=== PATIENT | female | born 1965 | race Caucasian/White ===

== ENCOUNTER 2017-06-04 13:38 | Observation (INO) ==
--- NOTE | 2017-06-04 16:02 | Emergency Department Note ---
Disposition Clinical Impression: Chest pain Qualifiers: Chest pain type: unspecified Qualified Code(s): R07.9 - Chest pain, unspecified Disposition: Admitted As Inpatient Condition: Good Time of Disposition: 18:49 Chest Pain HPI - General Chief Complaint: ED Chest Pain Stated Complaint: chest pressure x2 days Time Seen by Provider: 06/04/17 15:52 Source: patient, family Mode of arrival: ambulatory Limitations: no limitations Vital Signs Reviewed: Yes Nursing Notes Reviewed: Yes - History of Present Illness HPI Narrative: 52-year-old who comes in complaining of pressure in her chest. This is been gone for 2 days. Says that she has some difficulty with swallowing and feels like something stuck. States she ate some [place] 2 days ago but may be related to that. Pt complaint: chest pain Onset (ago): day(s) Duration: constant Pain Location: substernal Severity scale (1-10): 3 Quality: tightness, aching Pain Radiation: none Improves with: nothing Worsens with: eating Treatments prior to arrival chest pain: none - Related Data Home Medications Medication Instructions Recorded Confirmed No Known Home Drugs 06/04/17 06/04/17 Allergies Allergy/AdvReac Type Severity Reaction Status Date / Time No Known Allergies Allergy Verified 06/04/17 14:13 All systems ED: reviewed and negative except as stated. Constitutional: Denies: fever, chills, weakness, weight change Eyes: Denies: eye pain, eye discharge, vision change ENT ED: Denies: ear pain, throat pain, dental pain, hearing loss, epistaxis, congestion, dysphagia Cardiovascular: Reports: chest pain. Denies: palpitations, dyspnea on exertion , edema, syncope Respiratory: Denies: cough, dyspnea, wheezes, hemoptysis, stridor Gastrointestinal: Denies: abdominal pain, nausea, vomiting, diarrhea, constipation, hematemesis, melena, hematochezia Genitourinary: Denies: dysuria, frequency, hematuria, discharge Musculoskeletal: Denies: back pain, neck pain, arthralgia, myalgia Integumentary: Denies: rash, abrasion, lesions Neurological: Denies: headache, weakness, numbness, paresthesias, confusion, abnormal gait, vertigo Psychiatric: Denies: anxiety, depression, suicidal thoughts, homicidal thoughts , auditory hallucinations, visual hallucinations Endocrine: Denies: fatigue Hematological/Lymphatic: Denies: easy bleeding, easy bruising Allergic/Immunologic: Denies: facial swelling, urticaria Chest Pain PMH - Past Medical History Medical history: Reports: no medical history Psychiatric history: Reports: no psych history - Social History Smoking Status: Never smoker Alcohol use: Reports: none Drug use: Reports: none Physical Exam - General Limitations: no limitations General appearance: alert, in no apparent distress - Head Head exam: atraumatic, normocephalic, normal inspection - Eye Eye exam: Present: normal appearance, PERRL, EOMI - ENT ENT exam: normal exam, normal oropharynx, mucous membranes moist - Neck Neck exam: Present: normal inspection, full ROM, trachea midline - Chest Chest inspection: Present: normal inspection, symmetric chest wall rise - Respiratory Respiratory exam: Present: normal lung sounds bilaterally - Cardiovascular Cardiovascular exam: Present: regular rate, normal rhythm, normal heart sounds - Abdominal Exam Abdominal exam: Present: soft, Non-Tender. Absent: tenderness, distention, guarding, rebound, rigidity - Extremities Exam Extremities exam: Present: normal inspection - Expanded Lower Extremity Exam Neurovascular/Tendon exam: Absent: motor deficit, sensory deficit, tendon deficit - Back Exam Back exam: Present: normal inspection, full ROM. Absent: tenderness - Neurological Exam Neurological exam: Present: alert, oriented X3 - Psychiatric Psychiatric exam: Present: normal affect - Skin Skin exam: Present: warm, dry, intact, normal color Course - Reevaluation(s) Reevaluation #1: 52-year-old comes in complaining of some chest pressure states she did eat some [employer] and she thought maybe was contributing and may be stuck in her chest. I did discuss this with endoscopy who did not feel that she would require a scope at this point in time she also states that she has some radiation of the chest and her shoulders which does not go along with a feel foreign body. We'll admit her for rule out to make sure hearts okay. Time: 18:48 - Consultations Consultation #1: Discussed with Dr. Seals he recommends a soft diet and follow-up of systems symptoms worsen. He wanted me to give the patient his phone number to call him over the weekend if needed. Time: 16:02 Consultation #2: Discussed with Dr. Briggs, admit Time: 18:48 Vital Signs Temperature 98.1 F 06/04/17 14:13 Pulse Rate 50 06/04/17 14:13 Respiratory Rate 18 06/04/17 14:13 Blood Pressure 117/70 06/04/17 14:13 O2 Sat by Pulse Oximetry 100 06/04/17 14:13 Temperature 98.1 F 06/04/17 20:03 Pulse Rate 60 06/04/17 20:03 Respiratory Rate 14 06/04/17 20:03 Blood Pressure 112/72 06/04/17 20:03 O2 Sat by Pulse Oximetry 98 06/04/17 20:03 Oxygen Delivery Oxygen Delivery Room Air Chest Pain - Lab Data Lab results reviewed: Yes I reviewed the patient's lab results. Result diagrams: 06/04/17 16:01 06/04/17 16:01 Lab Results 06/04/17 06/04/17 06/04/17 Range/Units 16:01 16:01 16:01 WBC 6.2 (4.3-11.1) K/mcL RBC 4.61 (3.82-4.97) M/mcL Hgb 14.0 (11.5-15.4) g/dL Hct 41.6 (35.3-44.9) % MCV 90.2 (83.0-100.0) fL MCH 30.4 (28.0-33.3) pg MCHC 33.7 (31.6-35.5) g/dL RDW 11.5 (11.5-14.5) % Plt Count 279 (140-400) K/mcL MPV 11.3 (9.4-12.4) fL Immature Gran % 0.2 (0-4) % Seg Neutrophils % 44.8 % Lymphocytes % 42.4 % Monocytes % 7.9 % Eosinophils % 3.7 % Basophils % 1.0 % Neutrophils # 2.8 (1.6-8.9) K/mcL Lymphocytes # 2.6 (0.6-4.6) K/mcL Monocytes # 0.5 (0.0-1.3) K/mcL Eosinophils # 0.2 (0.0-0.6) K/mcL Basophils # 0.1 (0.0-0.2) K/mcL PT 11.6 (9.4-12.1) Seconds INR 1.1 Sodium 135 L (136-145) mEq/L Potassium 4.1 (3.5-5.1) mEq/L Chloride 102 (98-107) mEq/L Carbon Dioxide 27 (23-29) mEq/L BUN 17 (6-20) mg/dL Creatinine 0.75 (0.60-1.20) mg/dL Est GFR ( Amer) > 60 (> 60) Est GFR (Non-Af Amer) > 60 (> 60) BUN/Creatinine Ratio 23 (6-26) Glucose 97 (70-105) mg/dL Calculated Osmolality 281 (280-300) Calcium 9.6 (8.6-10.3) mg/dL Troponin I (< 0.04) ng/mL 06/04/17 Range/Units 16:01 WBC (4.3-11.1) K/mcL RBC (3.82-4.97) M/mcL Hgb (11.5-15.4) g/dL Hct (35.3-44.9) % MCV (83.0-100.0) fL MCH (28.0-33.3) pg MCHC (31.6-35.5) g/dL RDW (11.5-14.5) % Plt Count (140-400) K/mcL MPV (9.4-12.4) fL Immature Gran % (0-4) % Seg Neutrophils % % Lymphocytes % % Monocytes % % Eosinophils % % Basophils % % Neutrophils # (1.6-8.9) K/mcL Lymphocytes # (0.6-4.6) K/mcL Monocytes # (0.0-1.3) K/mcL Eosinophils # (0.0-0.6) K/mcL Basophils # (0.0-0.2) K/mcL PT (9.4-12.1) Seconds INR Sodium (136-145) mEq/L Potassium (3.5-5.1) mEq/L Chloride (98-107) mEq/L Carbon Dioxide (23-29) mEq/L BUN (6-20) mg/dL Creatinine (0.60-1.20) mg/dL Est GFR ( Amer) (> 60) Est GFR (Non-Af Amer) (> 60) BUN/Creatinine Ratio (6-26) Glucose (70-105) mg/dL Calculated Osmolality (280-300) Calcium (8.6-10.3) mg/dL Troponin I < 0.03 (< 0.04) ng/mL - Radiology Data Radiology results reviewed: Yes I reviewed the patient's radiology results. Chest x-ray shows no obvious infiltrate - EKG Data EKG attestation: Yes I reviewed and interpreted this EKG. EKG shows normal: sinus rhythm Rate: bradycardia Rhythm: NSR [place]/QRS: IVCD Interpretation: no acute changes Heart Score - Score History: Slightly Suspicious EKG: Non Specific repolarisation Disturbance Age: 45-65 Risk Factors: 1-2 risk factors Troponin: Less than normal limit HEART Score Total: 3
[2017-06-04 16:23] LABS: Basophils # 0.1 K/mcL (0.0-0.2); Eosinophils # 0.2 K/mcL (0.0-0.6); Eosinophils % 3.7 %; Hematocrit 41.6 % (35.3-44.9); Immature Granulocytes % 0.2 % (0-4); Lymphocytes # 2.6 K/mcL (0.6-4.6); Lymphocytes % 42.4 %; Mean Corpuscular HGB Conc 33.7 g/dL (31.6-35.5); Mean Corpuscular Hemoglobin 30.4 pg (28.0-33.3); Mean Corpuscular Volume 90.2 fL (83.0-100.0); Mean Platelet Volume 11.3 fL (9.4-12.4); Monocytes # 0.5 K/mcL (0.0-1.3); Monocytes % 7.9 %; Neutrophils # 2.8 K/mcL (1.6-8.9); Platelet Count 279 K/mcL (140-400); Red Blood Count 4.61 M/mcL (3.82-4.97); Red Cell Distribution Width 11.5 % (11.5-14.5); Segmented Neutrophils % 44.8 %
[2017-06-04 16:27] LABS: INR 1.1; Prothrombin Time 11.6 Seconds (9.4-12.1)
[2017-06-04 16:42] LABS: BUN/Creatinine Ratio 23 (6-26); Blood Urea Nitrogen 17 mg/dL (6-20); Calcium 9.6 mg/dL (8.6-10.3); Carbon Dioxide 27 mEq/L (23-29); Chloride 102 mEq/L (98-107); Glucose 97 mg/dL (70-105); Osmolality,Calculated 281 (280-300); Potassium 4.1 mEq/L (3.5-5.1); Sodium 135 mEq/L (136-145); eGFR For African Americans > 60 (> 60); eGFR For Non-African Americans > 60 (> 60)
[2017-06-04] MEDS ORDERED: Aspirin 81 MG TAB.CHEW PO ONE (19:41)
[2017-06-04] MEDS ORDERED: Nitroglycerin 0.4 MG TAB.SUBL SL PRN (19:41)
--- NOTE | 2017-06-04 19:47 | Internal Med History&Physical ---
Date of Encounter: 06/04/17 Time of Encounter: 19:30 Assessment and Plan (1) Chest pain Current visit: Yes Status: Acute Admit for observation Trend Nikki Initial troponin wnl ECG does not show ischemic changes Ex stress/nuclear perfusion study in am NG for cp. Qualifiers: Chest pain type: unspecified Qualified Code(s): R07.9 - Chest pain, unspecified SNOMED Code(s): 66836529 (2) Anxiety Current visit: Yes Status: Acute Not on medication at home and relaxed now so no BDZ Code(s): F41.9 - Anxiety disorder, unspecified SNOMED Code(s): 18045946 (3) GERD (gastroesophageal reflux disease) Current visit: Yes Status: Acute Start PPI Qualifiers: Esophagitis presence: esophagitis presence not specified Qualified Code(s) : K21.9 - Gastro-esophageal reflux disease without esophagitis Internal Medicine - H&P: HPI Chief complaint: Chest pain and feeling object stuck in esophagus Admitted From: Emergency Dept Plans for Post Hospital Care: Home History of present illness: 52-year-old who presented with retrosternal chest pressure/pain which radiates to her neck complaining of pressure in her chest. She's had these symptoms for approximately 2 days. She also c/o a feeling that something is lodged in her esophagus. GI was called by the ER attending who did not feel this was likely given her presentation of radiating pain. He will see her over the weekend if necessary. She is under a lot of stress and has anxiety so this may represent globus hystericus. . However, she states she ate some [place] 2 days ago and feels this is related to the almonds. Past Med Surg Social Fam HX - Past Medical History Medical history: no medical history Psychiatric history: no psych history - Social History Smoking Status: Never smoker Smokeless Tobacco Status: No Alcohol use: none Drug use: none - Family History Mother Hx Family Cancer: Yes (lung) Hx Family Psychosocial Disorders: Yes (anxiety) Internal Medicine - H&P: Meds No Known Home Drugs 06/04/17 [History] 3 Allergy/AdvReac Type Severity Reaction Status Date / Time No Known Allergies Allergy Verified 06/04/17 14:13 All Systems PM: A 10-system review of systems was performed and is negative for pertinent findings except as documented above in the HPI. - Constitutional Vitals: Temp Pulse Resp BP Pulse Ox 98.1 F 52 16 132/57 100 06/04/17 14:13 06/04/17 18:25 06/04/17 19:36 06/04/17 19:36 06/04/17 18:25 Internal Med - H&P Results - Labs CBC & Chem 7: 06/04/17 16:01 06/04/17 16:01 Labs: Short CBC 06/04/17 Range/Units 16:01 WBC 6.2 (4.3-11.1) K/mcL Hgb 14.0 (11.5-15.4) g/dL Hct 41.6 (35.3-44.9) % Plt Count 279 (140-400) K/mcL Neutrophils # 2.8 (1.6-8.9) K/mcL BMP 06/04/17 16:01 Sodium 135 L Potassium 4.1 Chloride 102 Carbon Dioxide 27 BUN 17 Creatinine 0.75 Glucose 97 Calcium 9.6 Cardiac Enzymes 06/04/17 Range/Units 16:01 Troponin I < 0.03 (< 0.04) ng/mL
[2017-06-05 02:12] LABS: Basophils # 0.1 K/mcL (0.0-0.2); Basophils % 1.2 %; Eosinophils # 0.3 K/mcL (0.0-0.6); Eosinophils % 3.8 %; Hematocrit 38.5 % (35.3-44.9); Immature Granulocytes % 0.1 % (0-4); Lymphocytes # 2.8 K/mcL (0.6-4.6); Lymphocytes % 41.3 %; Mean Corpuscular HGB Conc 33.8 g/dL (31.6-35.5); Mean Corpuscular Hemoglobin 30.2 pg (28.0-33.3); Mean Corpuscular Volume 89.5 fL (83.0-100.0); Mean Platelet Volume 11.3 fL (9.4-12.4); Monocytes # 0.6 K/mcL (0.0-1.3); Monocytes % 8.8 %; Platelet Count 271 K/mcL (140-400); Red Cell Distribution Width 11.5 % (11.5-14.5); Segmented Neutrophils % 44.8 %
[2017-06-05 02:18] LABS: INR 1.1; Prothrombin Time 11.8 Seconds (9.4-12.1)
[2017-06-05 02:56] LABS: Alanine Aminotransferase 12 Units/L (7-52); Albumin 4.1 g/dL (3.5-5.7); Albumin/Globulin Ratio 1.5 (1.1-2.2); Alkaline Phosphatase 59 Units/L (34-104); Aspartate Amino Transferase 19 Units/L (13-39); BUN/Creatinine Ratio 21 (6-26); Bilirubin,Total 0.5 mg/dL (0.3-1.0); Blood Urea Nitrogen 14 mg/dL (6-20); Calcium 9.3 mg/dL (8.6-10.3); Carbon Dioxide 27 mEq/L (23-29); Chloride 104 mEq/L (98-107); Globulin 2.8 g/dL (2.4-3.5); Glucose 95 mg/dL (70-105); Osmolality,Calculated 284 (280-300); Potassium 3.7 mEq/L (3.5-5.1); Sodium 137 mEq/L (136-145); Total Protein 6.9 g/dL (6.4-8.9); eGFR For African Americans > 60 (> 60); eGFR For Non-African Americans > 60 (> 60)
[2017-06-05 11:25] VITALS: BP 111/62
--- NOTE | 2017-06-05 15:14 | Discharge Summary ---
Date of Encounter: 06/05/17 Time of Encounter: 15:11 - Discharge Diagnosis (1) Anxiety Priority: Primary Status: Acute Comments: Patient struggles with anxiety and stress but is on no medications She is very suspicious of any side effects of any medications (2) Chest pain Priority: Primary Status: Acute Comments: Patient is chest pain-free. Stress test was completed and is negative for ischemia troponins wnl ECG does not show ischemic changes Qualifiers: Chest pain type: unspecified Qualified Code(s): R07.9 - Chest pain, unspecified (3) GERD (gastroesophageal reflux disease) Priority: Primary Status: Acute Comments: Patient provided with a prescription for Prilosec. Instructed that she needs to find a PCP and follow up. Qualifiers: Esophagitis presence: esophagitis presence not specified Qualified Code(s) : K21.9 - Gastro-esophageal reflux disease without esophagitis - Discharge Medications Prescriptions: Omeprazole [PriLOSEC] 40 mg PO DAILY #30 cap Home Medications: Omeprazole [PriLOSEC] 40 mg PO DAILY #30 cap 06/05/17 [Rx] Allergies/Adverse Reactions: 3 Allergy/AdvReac Type Severity Reaction Status Date / Time No Known Allergies Allergy Verified 06/04/17 14:13 Procedures/tests Complete & Pending: Procedures Performed prior 72 hours Category Date Time Status NM heriberto perf SPECT multi [NM] Routine Exams 06/04/17 19:43 Taken SP exercise nuclear stress Routine Y 06/05/17 19:41 Completed Date of admission: 06/04/17 19:21 Primary care physician: PCP NONE Discharging clinician: Mirian Thakkar Anticipated date of discharge: 06/05/17 - Patient Status Disposition: Home, Self-Care Condition: Good Functional capacity at discharge: independent ambulation Overall status at discharge: patient is back to baseline - Discharge Instructions Instructions: Omeprazole (By mouth), Chest Pain (DC), Gastroesophageal Reflux Disease (DC) Follow Up With: NONE,PCP [Primary Care Provider] - (Please call [phone] to find a family physician.) Christine Omalley MD [Partnered Physician] - (Appointment has been requested. 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 She still is having some feelings of burning in her throat. She is agreeable for discharge and will follow up with the drilling superintendent and her PCP as an outpatient. Provided a prescription for Prilosec Hospital course: This is a 52-year-old female who presented with retrosternal chest pressure and pain which radiated into her neck complaining of pressure in her chest. She had D symptoms for approximately 2 days. She also felt like she had something lodged in her esophagus. GI was called by the ER attending do not feel that this was likely causing her radiating pain. She is under a lot of stress and has anxiety. She takes no medications at home. She had a stress test which was negative for ischemia. She was deemed cleared to go home. Discussed and she will try Prilosec and she will follow-up with her PCP and drilling superintendent. . - Time Spent with Patient Total time spent providing and/or coordinating discharge services: Less than 30 minutes - Constitutional Vitals: Temp Pulse Resp BP Pulse Ox 98.8 F 64 16 111/62 99 06/05/17 11:24 06/05/17 11:24 06/05/17 11:24 06/05/17 11:24 06/05/17 11:24 General appearance: Present: cooperative, A&O X 3, pleasant, no acute distress, answers questions appropriately - Head Head exam: Present: atraumatic, normocephalic - Eye Eye exam: Present: PERRL, conjuntiva pink, sclera anicteric Pupils: Present: PERRL - Neck Neck exam general surgery: Present: supple, trachea midline. Absent: lymphadenopathy - Respiratory Respiratory exam: Present: CTAB. Absent: accessory muscle use, rales, rhonchi, wheezes - Cardiovascular Cardiovascular exam: Present: RRR, +S1, +S2. Absent: diastolic murmur, gallop, rubs, systolic murmur - GI/Abdominal GI/Abdominal exam: Present: normal bowel sounds, soft, no peritoneal signs. Absent: distended, tenderness - Extremities Exam Extremities exam: Present: warm, radial pulses palpable and symmetrical. Absent : calf tenderness, cyanotic, pedal edema - Neurological Exam Neurological exam: Present: CN II-XII intact, oriented X3, no focal deficits. Absent: pronater drift, facial droop, speech deficit - Skin Skin exam: Present: dry, intact, warm
--- NOTE | 2017-06-07 16:08 | Electrocardiograph Report ---
[place] [id number] Test Date: 2017-06-04 Pat Name: Beverly Henson Department: 104 Room: 3B Gender: F Web Engineer: ANGELI : 1965 Requested By: Abraham Crook Order Number: [id number] Reading MD: Omar Collins DO Measurements Intervals [place] Rate: 51 P: -1 SC: 123 QRS: 72 QRSD: 81 T: 50 QT: 447 QTc: 423 Interpretive Statements SINUS BRADYCARDIA POSSIBLE RIGHT VENTRICULAR CONDUCTION DELAY NO INFORMATION IN V1 Electronically Signed On 06-07-2017 16:07:07 EST by Omar Collins DO
== END 2017-06-05 16:33 | disposition home or self-care (01) ==
LOC: EMEROO 13:38 → 3BNU 13:38
PROVIDERS: ADMIT Internal Medicine; ATTEND Registered Nurse